=== PATIENT | female | born 1995 | race Caucasian/White ===

== ENCOUNTER 2024-06-10 13:30 | Outpatient (CLI) | payer OTHER ==
[~2024-06-10 13:30] MED LIST: Iopamidol 370 76% 100 ML VIAL ONE
== END 2024-06-10 13:31 | disposition home or self-care (01) ==
LOC: BICCT 13:30
PROVIDERS: ATTEND Orthopaedic Surgery
DX: M25.311 Other instability, right shoulder (principal); M25.312 Other instability, left shoulder; I77.9 Disorder of arteries and arterioles, unspecified; Q65.89 Other specified congenital deformities of hip
CPT/HCPCS: 75635; Q9967